=== PATIENT | male | born 1965 | race Caucasian/White ===

== ENCOUNTER → 2023-07-16 | Emergency (ER) | payer OTHER ==
[~2023-07-16] MED LIST: ACETAMINOPHEN 500 MG TAB PO PRN; ASPIRIN EC 81 MG TAB PO SCH; ATORVASTATIN 40 MG TAB PO SCH; CLOPIDOGREL 75 MG TABLET ONE; FUROSEMIDE 40 MG/4 ML VIAL IV SCH; HEPARIN 5000 UNIT/ML 1 ML VIAL ONE; HEPARIN/D5W 25,000 UNIT/500 ML BAG IV ONE; METOPROLOL TAR 25 MG TAB PO SCH; MORPHINE 2 MG/ML SYR IV PRN; MORPHINE 4 MG/ML SYR ONE; NITROGLYCERIN 0.4 MG/TAB SL PRN; ONDANSETRON 4 MG/2 ML VIAL IV PRN; TENECTEPLASE 50 MG/10 ML VIAL IV ONE
[2023-07-16 15:13] LABS: Absolute Basophils 0.1 K/uL (0-0.5); Absolute Eosinophils 0.2 K/uL (0-0.5); Absolute Lymphocytes (CBC) 1.7 K/uL (0.7-4.9); Absolute Monocytes 0.5 K/uL (0.1-1.3); Absolute Neutrophil 4.1 K/uL (1.8-8.0); Basophils % 0.8 % (0-1.3); Eosinophils % 3.6 % (0-4.4); Hematocrit 44.6 % (39.6-49.0); Hemoglobin 15.4 g/dL (13.6-17.9); Lymphocytes % 25.2 % (15.3-44.8); MCH 33.4 pg (27.0-35.0); MCHC 34.6 g/dL (32.0-36.0); MCV 96.7 fL (80-100); Neutrophils % 62.4 % (41.7-73.7); Nucleated Red Blood Cells % 0.1 % (0-0); Platelets 282 thou/uL (152-406); RBC Red Blood Cell Count 4.61 M/uL (4.33-5.43); Red Cell Distribution Width 13.9 % (12.1-15.2)
[2023-07-16 15:19] LABS: Troponin High Sensitivity 17.2 pg/mL (<58.9)
--- NOTE | 2023-07-16 15:25 | RAD REPORT ---
EXAM DESCRIPTION: Lizette Single View07/16/2023 2:50 pm CLINICAL HISTORY: CHEST PAIN COMPARISON: No comparisons TECHNIQUE: Portable AP view of the chest. FINDINGS: The lungs are clear. No pneumothorax or effusion. The heart is normal size. Sequelae of m edian sternotomy. IMPRESSION: No acute cardiopulmonary process.
--- NOTE | 2023-07-16 15:33 | ER ---
Nurse's Notes [facility] Name: Jerrell Moulton Age: 57 yrs Sex: Male : 1965 Arrival Date: 07/16/2023 Time: 14:24 Bed 16 Private MD: Diagnosis: ST elevation (STEMI) myocardial infarction of inferior wall Presentation: 07/15 14:38 Chief complaint: EMS states: chest pain that started about an hour ago. Patient has cp4 taken 3 nitro prior to arrival. Coronavirus screen: Client denies travel out of the [place] in the last 14 days. At this time, the client does not indicate any symptoms associated with coronavirus-19. Ebola Screen: Patient negative for fever greater than or equal to 101.5 degrees Fahrenheit, and additional compatible Ebola Virus Disease symptoms Patient denies exposure to infectious person. Patient denies travel to an Ebola-affected area in the 21 days before illness onset. No symptoms or risks identified at this time. Initial Sepsis Screen: Does the patient meet any 2 criteria? No. Patient's initial sepsis screen is negative. Does the patient have a suspected source of infection? No. Patient's initial sepsis screen is negative. Risk Assessment: Do you want to hurt yourself or someone else? Patient reports no desire to harm self or others. Onset of symptoms was July 16, 2023 at 13:40. 14:38 Method Of Arrival: EMS: [facility] cp4 14:38 Acuity: DAVID 2 cp4 14:40 Care prior to arrival: Medication(s) given: ASA, 81 mg, x 4, zofran 4 mg. cp4 Triage Assessment: 14:40 General: Appears in no apparent distress. Behavior is calm, cooperative, appropriate cp4 for age. Pain: Complains of pain in chest Pain radiates to back and left arm. Cardiovascular: Reports chest pain, nausea, Rhythm is sinus bradycardia. Historical: - Allergies: 14:40 No Known Allergies; cp4 - Home Meds: 16:59 carvedilol 12.5 mg oral tablet 1 tab once [Active]; clopidogrel 75 mg oral tablet 1 tab cp4 once [Active]; amlodipine 5 mg tablet 1 tab once [Active]; Praluent Pen 150 mg/mL subcutaneous Pen Injector 150 mg every 2 weeks [Active]; isosorbide dinitrate 30 mg Oral tablet 1 tab once [Active]; aspirin 81 mg Oral capsule 1 cap once [Active]; fenofibrate 150 mg oral capsule 1 cap once [Active]; losartan 50 mg oral tablet 1 tab once [Active]; allopurinol 300 mg Oral tablet 1 tab once [Active]; - PMHx: 16:49 CAD; iw - PSHx: 16:49 CABG; iw - Immunization history:: Adult Immunizations up to date. - Social history:: Smoking status: Patient denies any tobacco usage or history of. Screenin:43 [facility] ED Fall Risk Assessment (Adult) History of falling in the last 3 months, cp4 including since admission No falls in past 3 months (0 pts) Confusion or Disorientation No (0 pts) Intoxicated or Sedated No (0 pts) Impaired Gait No (0 pts) Mobility Assist Device Used No (0 pt) Altered Elimination Score/Fall Risk Level 0 - 2 = Low Risk Oriented to surroundings, Maintained a safe environment, Assessed \T\ reinforced patient's understanding of fall precautions, Hourly rounding (assess needs \T\ fall precautionary measures) done. Abuse screen: Denies threats or abuse. Nutritional screening: No deficits noted. Tuberculosis screening: No symptoms or risk factors identified. Assessment: 14:43 Reassessment: No changes from previously documented assessment. Pain: Pain began 1 hour cp4 ago. Vital Signs: 14:38 BP 164 / 103; Pulse 61; Resp 18; Temp 98; Pulse Ox 99% ; Pain 6/10; cp4 15:00 BP 146 / 101; Pulse 56; Resp 18; Pulse Ox 99% ; cp4 15:30 BP 156 / 101; Pulse 59; Resp 18; Pulse Ox 100% ; cp4 16:00 BP 153 / 98; Pulse 55; Resp 18; Pulse Ox 100% ; cp4 16:16 Weight 83.91 kg; iw 16:30 BP 165 / 114; Pulse 56; Resp 18; Pulse Ox 100% ; cp4 14:38 Pain Scale: Adult cp4 ED Course: 14:30 Patient arrived in ED. ec2 14:31 Michael Timmons MD is Attending Physician. ec2 14:38 Arianna Schmid is Primary Nurse. cp4 14:40 Triage completed. cp4 14:40 Arm band placed on right wrist. Patient placed in an exam room, on a stretcher. cp4 14:43 Bed in low position. Call light in reach. Side rails up X 1. Client placed on cp4 continuous cardiac and pulse oximetry monitoring. NIBP monitoring applied. teletypesetter monitor on. 14:43 No provider procedures requiring assistance completed. Maintain EMS IV. Dressing cp4 intact. Good blood return noted. Site clean \T\ dry. Gauge \T\ site: 18g LAC. Oxygen administration via nasal cannula \T\ 2L/min. 14:45 EKG done, by ED staff, reviewed by Michael Timmons MD. bc6 14:48 Basic Metabolic Panel Sent. cp4 14:48 CBC with Diff Sent. cp4 14:48 NT PRO-BNP Sent. cp4 14:48 Troponin HS Sent. cp4 14:51 XRAY Chest (1 view) In Process Unspecified. EDMS 15:33 Deisi Mar MD is Hospitalizing Provider. ec2 16:00 Warm blanket given. cp4 16:10 Troponin High Sensitivity Sent. cp4 16:30 Inserted saline lock: 20 gauge in right antecubital area, using aseptic technique. cp4 16:[address] [facility], pt accepted in transfer to [address] [place] [address] westley ness. 17:09 Patient transferred, IV remains in place. cp4 17:11 Provided Education on: OR. cp4 17:20 Report given to [place] Luis. One-on-one care X 30 minutes. cp4 Administered Medications: 14:53 Drug: morphine IVP or IV 4 mg IVP once over 4 mins Route: IVP; Infused Over: 4 mins; cp4 Site: left antecubital; 17:14 Follow up: Response: No adverse reaction cp4 16:15 Drug: morphine IVP or IV 8 mg IVP once over 4 mins Route: IVP; Infused Over: 4 mins; cp4 Site: left antecubital; 17:14 Follow up: Response: No adverse reaction cp4 16:34 Drug: Clopidogrel PO 600 mg PO once Route: PO; iw 17:12 Follow up: Response: No adverse reaction cp4 16:35 Drug: Tenecteplase IV 45 mg IV at bolus once {Co-Signature: iw (Breanna Barth RN).} cp4 Route: IV; Rate: bolus; Site: left antecubital; 16:36 Follow up: IV Status: Completed infusion cp4 17:13 Follow up: Response: No adverse reaction cp4 16:38 Drug: Heparin (OR Drip) 12 units/kg/hr - ([place] [address] units, D5W IV 500 ml) IV at cp4 calculated rate Per protocol; Max initial rate 1000 units/hr {Co-Signature: rica (Rosanna Guzman RN).} Route: IV; Rate: calculated rate; Site: left antecubital; 17:13 Follow up: Response: No adverse reaction; IV Status: Infusion continued upon transfer cp4 16:39 Drug: Heparin (OR-Bolus with thrombolytic) - HEParin IVP 60 units/kg IVP once; Max 4000 cp4 units {Co-Signature: rica (Rosanna Guzman RN).} Route: IVP; Site: left antecubital; 17:13 Follow up: Response: No adverse reaction cp4 Medication: 14:43 VIS not applicable for this client. cp4 Outcome: 15:33 Decision to Hospitalize by Provider. ec2 16:29 ER care complete, transfer ordered by . ec2 17:09 Transferred by helicopter to [facility], Transfer form completed. cp4 X-rays sent w/ patient. 17:09 Condition: stable 17:09 Instructed on the need for transfer, 17:23 Patient left the ED. iw Signatures: Dispatcher [employer] Kadie Almanzar Irene, RN RN iw Janeth Girard Michael Timmons MD MD ec Arianna Schmid cp4 Rosanna Guzman RN kcBreanna Montero RN Corrections: (The following items were deleted from the chart) 17:11 16:00 Patient transferred, IV remains in place. cp4 cp4
--- NOTE | 2023-07-16 15:33 | EDPHYS ---
Physician Documentation [facility] Name: Jerrell Moulton Age: 57 yrs Sex: Male : 1965 Arrival Date: 07/16/2023 Time: 14:24 Bed 16 Private MD: ED Physician Michael Timmons HPI: 07/15 14:42 This 57 yrs old Male presents to ER via EMS with complaints of Chest Pain. ec2 14:42 Patient arrives today for evaluation of left-sided chest pain. Patient reports the pain ec2 has been constant for the past hour. Patient reports no specific alleviating or exacerbating factors, had taken nitroglycerin with little alleviation in symptoms.. Historical: - Allergies: 14:40 No Known Allergies; cp4 - Home Meds: 16:59 carvedilol 12.5 mg oral tablet 1 tab once [Active]; clopidogrel 75 mg oral tablet 1 tab cp4 once [Active]; amlodipine 5 mg tablet 1 tab once [Active]; Praluent Pen 150 mg/mL subcutaneous Pen Injector 150 mg every 2 weeks [Active]; isosorbide dinitrate 30 mg Oral tablet 1 tab once [Active]; aspirin 81 mg Oral capsule 1 cap once [Active]; fenofibrate 150 mg oral capsule 1 cap once [Active]; losartan 50 mg oral tablet 1 tab once [Active]; allopurinol 300 mg Oral tablet 1 tab once [Active]; - PMHx: 16:49 CAD; iw - PSHx: 16:49 CABG; iw - Immunization history:: Adult Immunizations up to date. - Social history:: Smoking status: Patient denies any tobacco usage or history of. ROS: 14:42 Constitutional: as per hpi ec2 Exam: 14:42 Constitutional: GEN: NAD Head: atraumatic Eyes: EOMI Ears: External ears are ec2 normal. CV: regular rate LUNGS: no respiratory distress ABD: non-distended SKIN: no evidence of rashes MSK: no evidence of trauma NEURO: moves all extremities equally Vital Signs: 14:38 BP 164 / 103; Pulse 61; Resp 18; Temp 98; Pulse Ox 99% ; Pain 6/10; cp4 15:00 BP 146 / 101; Pulse 56; Resp 18; Pulse Ox 99% ; cp4 15:30 BP 156 / 101; Pulse 59; Resp 18; Pulse Ox 100% ; cp4 16:00 BP 153 / 98; Pulse 55; Resp 18; Pulse Ox 100% ; cp4 16:16 Weight 83.91 kg; iw 16:30 BP 165 / 114; Pulse 56; Resp 18; Pulse Ox 100% ; cp4 14:38 Pain Scale: Adult cp4 MDM: 14:42 HEART Score: History: Moderately Suspicious (1), ECG: Non specific repolarization ec2 disturbance / LBTB / PM (1), Age: > 45 and < 65 years (1), Risk Factors: > or = 3 Risk factors for atherosclerotic disease (2). Data reviewed: vital signs. ED course: Patient arrives today for evaluation of chest pain. Examination remarkable for well-appearing nontoxic dividual with reassuring vital signs. EKG obtained, independently reviewed and interpreted by me, shows normal sinus rhythm, rate of 59, no acute ST segment elevations, nonspecific T wave abnormalities in the lateral leads. Will obtain cardiac profile as well as chest x-ray. Will give the patient IV morphine for pain control. Evaluate for ACS, doubt PE or dissection. Patient will ultimately require admission for cardiac evaluation.. 14:49 Patient medically screened. ec2 15:33 ED course: Metabolic profile shows renal dysfunction with a creatinine of 1.75 and GFR ec2 44. BNP slightly elevated at 700, CBC is reassuring, troponin within normal ranges, chest x-ray shows no acute intrathoracic process. Patient does have significant cardiac disease, does have high heart score, will admit for cardiac evaluation. Discussed case with hospice, pending admission.. 16:15 ED course: Patient with repeat worsening chest pain, repeat EKG independently reviewed ec2 and interpreted by me, shows ST elevation in the inferior leads, discussed case with Dr. Roca, I will activate the Atmospheric Physicist and transfer the patient out per cardiology recommendations. I will give the patient heparin bolus and start him on a heparin drip and discussed regarding thrombolytics as well as antiplatelet loading.. 16:28 ED course: Discussed case with cardiology at transferring facility, agree with STEMI, ec2 will give TNK, load with Plavix, started on heparin bolus and drip and transferred over.. 16:47 ED course: Repeat troponin elevated. Consistent with STEMI.. ec2 07/15 14:42 Order name: Basic Metabolic Panel; Complete Time: 15:32 ec2 07/15 14:42 Order name: CBC with Diff; Complete Time: 15:32 ec2 07/15 14:42 Order name: NT PRO-BNP; Complete Time: 15:32 ec2 07/15 14:42 Order name: Troponin HS; Complete Time: 15:32 ec2 07/15 15:58 Order name: Troponin High Sensitivity; Complete Time: 16:42 ec2 07/15 16:17 Order name: Lipid Profile EDMS 07/15 14:42 Order name: XRAY Chest (1 view); Complete Time: 15:32 ec2 07/15 14:42 Order name: EKG; Complete Time: 14:43 ec2 07/15 14:42 Order name: Cardiac monitoring; Complete Time: 14:47 ec2 07/15 14:42 Order name: EKG - Nurse/Tech; Complete Time: 14:45 ec2 07/15 14:42 Order name: IV Saline Lock; Complete Time: 14:48 ec2 07/15 14:42 Order name: Labs collected and sent; Complete Time: 14:48 ec2 07/15 14:42 Order name: O2 Per Protocol; Complete Time: 14:48 ec2 07/15 14:42 Order name: O2 Sat Monitoring; Complete Time: 14:48 ec2 07/15 15:58 Order name: EKG - Nurse/Tech; Complete Time: 16:06 ec2 Administered Medications: 14:53 Drug: morphine IVP or IV 4 mg IVP once over 4 mins Route: IVP; Infused Over: 4 mins; cp4 Site: left antecubital; 17:14 Follow up: Response: No adverse reaction cp4 16:15 Drug: morphine IVP or IV 8 mg IVP once over 4 mins Route: IVP; Infused Over: 4 mins; cp4 Site: left antecubital; 17:14 Follow up: Response: No adverse reaction cp4 16:34 Drug: Clopidogrel PO 600 mg PO once Route: PO; iw 17:12 Follow up: Response: No adverse reaction cp4 16:35 Drug: Tenecteplase IV 45 mg IV at bolus once {Co-Signature: iw (Breanna Barth RN).} cp4 Route: IV; Rate: bolus; Site: left antecubital; 16:36 Follow up: IV Status: Completed infusion cp4 17:13 Follow up: Response: No adverse reaction cp4 16:38 Drug: Heparin ([place] Drip) 12 units/kg/[place] - ([place] [address] units, D5W IV 500 ml) IV at cp4 calculated rate Per protocol; Max initial rate 1000 units/hr {Co-Signature: rica (Rosanna Guzman RN).} Route: IV; Rate: calculated rate; Site: left antecubital; 17:13 Follow up: Response: No adverse reaction; IV Status: Infusion continued upon transfer cp4 16:39 Drug: Heparin (GA-Bolus with thrombolytic) - HEParin IVP 60 units/kg IVP once; Max 4000 cp4 units {Co-Signature: rica (Rosanna Guzman RN).} Route: IVP; Site: left antecubital; 17:13 Follow up: Response: No adverse reaction cp4 Disposition: 07/16 10:33 Critical Care:. ec2 Disposition Summary: 07/16/23 16:29 Transfer Ordered Notes: Transfer Location: [facility] ec2 Reason: Higher level of care ec2 Condition: Stable(07/16/23 16:29) ec2 Problem: new(07/16/23 16:29) ec2 Symptoms: have improved(07/16/23 16:29) ec2 Accepting Physician: cardiology [facility](07/16/23 17:23) iw Diagnosis - ST elevation (STEMI) myocardial infarction of inferior wall(07/16/23 16:29) ec2 Forms: - Medication Reconciliation Form ec2 - SBAR form ec2 Critical care time excluding procedures: 10:33 Critical care time: Bedside Care: 45 minutes, Consultation: 15 minutes. Total time: 60 ec2 minutes Signatures: Dispatcher [employer] EDBreanna Caro, [place] RN iw Michael Timmons MD MD ec2 Arianna Schmid cp4 Rosanna Guzman RN [id number] Breanna Barth RN Corrections: (The following items were deleted from the chart) 07/15 16:23 16:12 Troponin High Sensitivity ordered. EDVA EDMS 16:29 15:33 Inpatient Admission ec2 ec2 16:29 15:33 Deisi Mar ec2 ec2 16:29 15:33 Telemetry/MedSurg (Inpatient) ec2 ec2 16:29 15:33 Stable ec2 ec2 16:29 15:33 new ec2 ec2 16:29 15:33 have improved ec2 ec2 16:29 15:33 Standard ec2 ec2 16:29 15:33 ec2 ec2 16:29 15:33 Chest pain, unspecified ec2 ec2 16:29 16:29 ST elevation (STEMI) myocardial infarction of inferior wall ec2 ec2 16:32 16:12 Urinalysis w/ reflexes ordered. EDMS EDMS 16:32 16:12 Basic Metabolic Panel ordered. EDMS EDMS 16:32 16:12 Basic Metabolic Panel ordered. EDMS EDMS 16:32 16:12 CBC with Automated Diff ordered. EDMS EDMS 16:32 16:12 CBC with Automated Diff ordered. EDMS EDMS 16:32 16:12 Magnesium ordered. EDMS EDMS 16:32 16:12 Magnesium ordered. EDMS EDMS 16:32 16:12 NT PRO-BNP ordered. EDMS EDMS 16:32 16:12 NT PRO-BNP ordered. EDMS EDMS 16:32 16:12 Troponin High Sensitivity ordered. EDMS EDMS 16:32 16:12 Troponin High Sensitivity ordered. EDMS EDMS 16:32 16:12 Troponin High Sensitivity ordered. EDMS EDMS 16:33 16:08 CONS Physician Consult ordered. EDMS EDMS 17:23 16:[address] [facility] ec2 iw 07/16 10:33 07/15 16:15 ED course: Patient with repeat worsening chest pain, repeat EKG ec2 independently reviewed and interpreted by me, shows ST elevation in the inferior leads, discussed case with Dr. Roca, I will activate the Atmospheric Physicist and transfer the patient out. I will give the patient heparin bolus and start him on a heparin drip and discussed regarding thrombolytics as well as antiplatelet loading.. ec2
--- NOTE | 2023-07-16 16:05 | P.HP ---
Certification for Inpatient Patient admitted to: Observation Practitioner: I am a practitioner with admitting privileges, knowledge of patient current condition, hospital course, and medical plan of care. Services: Services provided to patient in accordance with Admission requirements found in Title 42 Section 412.3 of the Code of Federal Regulations Patient History Date of Service: 07/16/23 History of Present Illness: 57-year-old male with a past medical history of hypertension presents to the emergency room with chest pain. He reports chest pain is substernal radiates to the left side, worse over the last hour. He was reports taking nitroglycerin with no relief. No reported fever, nausea vomiting diarrhea, shortness of breath. Vital signs 8 BP 164 / 103; Pulse 61; Resp 18; Temp 98; Pulse Ox 99% ; Pain 6/10; Plan to admit for chest pain rule out CT Review of Systems 10-point ROS is otherwise unremarkable Physical Examination - Studies Laboratory Data (last 24 hrs) 07/16/23 07/16/23 14:44 14:44 WBC 6.60 Hgb 15.4 Hct 44.6 Plt Count 282 Sodium 138 Potassium 4.0 BUN 23 H Creatinine 1.75 H Glucose 150 H Assessment and Plan - Plan Assessment plan Chest pain rule out CT Cardiology consult, telemetry, Trend troponins, As needed analgesics, antiemetic Full code N.p.o. after midnight Diet cardiac DVT Lovenox Disposition Home independent prior to admission Discharge Plan: Home - Advance Directives Does patient have a Living Will: No Does patient have a Durable POA for Healthcare: No - Code Status/Comfort Care Code Status: Full Code Critical Care: No Time Spent Managing Pts Care (In Minutes): 55
[2023-07-16 18:09] VITALS: BP 165/114; TEMP 98; O2SAT 100
--- NOTE | 2023-07-17 14:09 | EKG ---
Test Date: 2023-07-16 Test Time: 15:52:38 Auto Body Worker: OMAR MEASUREMENT RESULTS: Intervals: Rate: 55 NE: 176 QRSD: 82 QT: 444 QTc: 424 [place]: P: 35 NE: 176 QRS: -3 T: 84 INTERPRETIVE STATEMENTS: Sinus bradycardia Nonspecific ST abnormality Abnormal ECG Compared to ECG 07/16/2023 14:26:06 No significant changes Electronically Signed On 07-17-23 14:05:37 CDT by Ad Espinoza
--- NOTE | 2023-07-17 14:09 | EKG ---
Test Date: 2023-07-16 Test Time: 14:26:06 Header Set Up Operator: CHRIS MEASUREMENT RESULTS: Intervals: Rate: 59 OR: 170 QRSD: 84 QT: 468 QTc: 463 [place]: P: 39 OR: 170 QRS: -16 T: 85 INTERPRETIVE STATEMENTS: Sinus bradycardia Nonspecific ST and T wave abnormality Abnormal ECG No previous ECG available for comparison Electronically Signed On 07-17-23 14:05:45 CDT by Ad Espinoza
== END ==
LOC: ER 14:24 → ERHOLD 16:05 → UNDOADMOB 16:05
DX: I21.19 ST elevation (STEMI) myocardial infarction involving other coronary artery of inferior wall (principal); Z95.1 Presence of aortocoronary bypass graft
CPT/HCPCS: 96365; 92977; 93005 ×2; 85025; 80048; 36415; 84484 ×2; 83880; 71045; 96375; 99285; J1644; J3101